=== PATIENT | male | born 1985 | race Caucasian/White ===

== ENCOUNTER 2018-03-18 06:15 | Emergency (ER) | payer MEDICARE, OTHER ==
[2018-03-18] MEDS ORDERED: LIDOCAINE PATCH 5% TOP PRN (07:20)
[2018-03-18] MEDS ORDERED: KETOROLAC 60 MG/2 ML VIAL IM STA (07:20)
[2018-03-18] MEDS ORDERED: diazePAM 5 MG TABLET PO STA (07:20)
--- NOTE | 2018-03-18 07:23 | ED Physician Documentation ---
History of Present Illness - Stated complaint Stated Complaint: BACK/LEG PX NAUSEA/ PANIC ATTACK - Chief complaint Chief Complaint: General - Additonal information Additional information: hx from pt 32 male prior TBI and T spine surgery suffers from anxiety and chronic pain sees a counselor to ED this AM with anxiety increased above baseline 2/2 his chronic pain pain to postrior head and upper back L side (trap region) pain is typical for pt he reports no fever no recent surgery or denta work denies IVDA no numbness or weakn ess no urinary retention or incontinence no abd pain denies SI HI sees his counselor today and has a PMD at [facility] does not feel he needs SW - just needs some meds to control anxiety and pain this AM Review of Systems Constitutional: denies: Fever Cardiac: denies: Chest pain / pressure Respiratory: denies: Dyspnea GI: denies: Abdominal Pain : denies: Unable to Void, Incontinent Skin: denies: Rash Musculoskeletal: reports: Back pain Neurologic: reports: Headache. denies: Focal weakness, Numbness Immunocompromised: denies: Immunocompromised PD PAST MEDICAL HISTORY - Past Medical History Past Medical History: Yes Cardiovascular: None Respiratory: None Neuro: Headache/migraine, Other Endocrine/Autoimmune: None GI: Esophageal varices, Other : None HEENT: None Psych: Depression, Anxiety, Post traumatic stress disorder, Other Musculoskeletal: Osteoarthritis, Rheumatoid arthritis, Chronic back pain Derm: None Other Past Medical History: TBI, IBS - Past Surgical History Past Surgical History: Yes Ortho: Spine surgery - Present Medications Home Medications: Ambulatory Orders Medication Instructions Recorded Confirmed Cyanocobalamin (Vitamin B-12) 2,000 mcg PO DAILY 03/18/18 03/18/18 [Vitamin B-12] Famotidine [Pepcid] 20 mg PO DAILY 03/18/18 03/18/18 Magnesium Oxide [Magnesium] 400 mg PO DAILY 03/18/18 03/18/18 Naproxen 500 mg PO BID 03/18/18 03/18/18 Omeprazole 20 mg PO BID 03/18/18 03/18/18 Rizatriptan Benzoate [Rizatriptan] 5 mg PO PRN PRN MDD 6 03/18/18 03/18/18 Zolpidem [Ambien] 5 mg PO QPM 03/18/18 03/18/18 Zonisamide 50 mg PO DAILY 03/18/18 03/18/18 - Allergies Allergies/Adverse Reactions: Allergies Allergy/AdvReac Type Severity Reaction Status Date / Time prochlorperazine Allergy Hives Verified 03/18/18 06:24 [From Compazine] - Social History Does the pt smoke?: No Smoking Status: Never smoker Does the pt drink ETOH?: No Does the pt have substance abuse?: No - Immunizations Immunizations are current?: Yes - POLST Patient has POLST: No PD ED PE NORMAL - Vitals Vital signs reviewed: Yes - General General: Alert and oriented X 3 - HEENT HEENT: Atraumatic, PERRL - Neck Neck: Supple, no meningeal sign, No bony TTP - Cardiac Cardiac: RRR, No murmur - Respiratory Respiratory: No respiratory distress, Clear bilaterally - Abdomen Abdomen: Soft, Non tender, Other (no pulsatile mass) - Back Back: No spinal TTP, Other (well healed scar s redness, TTP and spasm to l trap region, no focal spine TTP redness or swelling) - Derm Derm: Normal color - Neuro Neuro: Alert and oriented X 3, activity therapist 2-12 intact, No motor deficit, No sensory deficit, Normal speech, Other (nl sensaation to both arms and legs, non destructive testing inspector finger ABD thumbs up OK wrist ext hip flexion kneee ext foot drsi and planta and great toe ext all 5/5, denies saddle anesthesia, patellar DTR 1+/4 marilee, no ankle clonus) Results - Vitals Vitals: Vital Signs - 24 hr 03/18/18 03/18/18 03/18/18 06:20 07:03 07:08 Temperature 37.1 C Heart Rate 85 Respiratory 16 16 Rate Blood Pressure 98/81 H 123/106 H O2 Saturation 97 Oxygen O2 Source Room air PD MEDICAL DECISION MAKING - ED course ED course: chronic pain and anxiety no red flags or suggestion of cauda equina epidural abscess AAA etc based on hx and exam txed with toradol lido and valium in ED pt to fup PMD for any rx needs and sees counselor this PM denies SO HI has a DD Departure - Departure Disposition: 01 Home, Self Care Clinical Impression: Acute anxiety Chronic pain Qualifiers: Chronic pain type: other chronic pain Qualified Code(s): G89.29 - Other chronic pain Condition: Good Instructions: ED Neck Back Pain General Follow-Up: CHAGO SRIVASTAVA [Primary Care Provider] - Comments: You may leave the lidocaine patch on until 7 PM Please follow up with your counselor later today as scheduled Please follow up with your OMD for any ongoing prescription needs Please also have your PMD recheck your blood pressure Return if worse
[2018-03-18 08:15] VITALS: BP 127/86
== END 2018-03-18 07:50 | disposition home or self-care (01) ==
LOC: ED 06:15
DX: F41.9 Anxiety disorder, unspecified (principal); G89.29 Other chronic pain; Z87.820 Personal history of traumatic brain injury; M06.9 Rheumatoid arthritis, unspecified
CPT/HCPCS: 96372; 99283; A9270